=== PATIENT | male | born 1970 | race Caucasian/White ===

== ENCOUNTER 2016-12-04 22:28 | Emergency (ER) | payer OTHER ==
[~2016-12-04] VITALS: Ht 175.3 cm; Wt 100.0 kg
[~2016-12-04 22:28] MED LIST: CEPH500C3 PO; NORV10TA PO
[2016-12-04] MEDS ORDERED: LIDOCAINE HCL 1% 50 ML VIAL INFIL ONE (22:45)
--- NOTE | 2016-12-04 22:46 | PD ---
HPI Chief Complaint: finger laceration Time Seen by Provider: 22:33 Travel History International Travel<30 days: No Contact w/Intl Traveler<30days: No Traveled to known affect area: No History of Present Illness HPI 46 years old male was Jacinto acted and brought in the ED for psychiatric evaluation and laceration to left third finger. There are conflicting stories about how her finger got lacerated. Possible self-inflicted. Patient was Jacinto acted and brought to ED for evaluation. Patient denies any intentional self-inflicted wound. Patient denies any suicide ideation. Patient states that he accidentally fell and suffered a laceration to the left third finger. Patient states he is up-to-date with TD booster. Patient admits to alcohol consumption today. Patient denies any illicit drug abuse. Patient denies any suicidal ideation. PFSH Past Medical History Depression: Yes Psychiatric: Yes Past Surgical History Tonsillectomy: Yes Social History Alcohol Use: Yes Tobacco Use: Yes Substance Use: No Allergies-Medications (Allergen,Severity, Reaction): Coded Allergies: No Known Allergies (Unverified , 12/04/16) Reported Meds & Prescriptions Reported Meds & Active Scripts Active Active Prescriptions or Reported Medications Unobtainable Review of Systems General / Constitutional: No: Fever Eyes: No: Visual changes HENT: No: Headaches Cardiovascular: No: Chest Pain or Discomfort Respiratory: No: Shortness of Breath Gastrointestinal: No: Abdominal Pain Genitourinary: No: Dysuria Musculoskeletal: No: Pain Skin: No Rash Neurologic: No: Weakness Psychiatric: No: Depression Endocrine: No: Polydipsia Hematologic/Lymphatic: No: Easy Bruising Physical Exam Narrative GENERAL: Well-nourished, well-developed patient. SKIN: Focused skin assessment warm/dry. HEAD: Normocephalic. EYES: No scleral icterus. No injection or drainage. NECK: Supple, trachea midline. No JVD or lymphadenopathy. CARDIOVASCULAR: Regular rate and rhythm without murmurs, gallops, or rubs. RESPIRATORY: Breath sounds equal bilaterally. No accessory muscle use. GASTROINTESTINAL: Abdomen soft, non-tender, nondistended. MUSCULOSKELETAL: No cyanosis, or edema. BACK: Nontender without obvious deformity. No CVA tenderness. Patient has a laceration to the dorsal aspect of left third finger PIP joint. Sensorimotor function distally intact. Data Data Last Documented VS Vital Signs Date Time Temp Pulse Resp B/P Pulse Ox O2 Delivery O2 Flow Rate FiO2 12/04/16 23:06 98.3 88 15 138/94 98 Orders Complete Blood Count With Diff (12/04/16 22:41) Comprehensive Metabolic Panel (12/04/16 22:41) Psych Screen (12/04/16 22:41) Drug Screen, Random Urine (12/04/16 22:41) Alcohol (Ethanol) (12/04/16 22:41) Lidocaine 1% Inj (50 Ml) (Xylocaine 1% I (12/04/16 22:45) Labs Laboratory Tests Test 12/04/16 22:55 White Blood Count 5.7 TH/MM3 Red Blood Count 4.74 MIL/MM3 Hemoglobin 15.5 GM/DL Hematocrit 44.4 % Mean Corpuscular Volume 93.6 FL Mean Corpuscular Hemoglobin 32.7 PG Mean Corpuscular Hemoglobin 35.0 % Concent Red Cell Distribution Width 13.5 % Platelet Count 265 TH/MM3 Mean Platelet Volume 7.0 FL Neutrophils (%) (Auto) 65.0 % Lymphocytes (%) (Auto) 22.6 % Monocytes (%) (Auto) 8.5 % Eosinophils (%) (Auto) 3.2 % Basophils (%) (Auto) 0.7 % Neutrophils # (Auto) 3.7 TH/MM3 Lymphocytes # (Auto) 1.3 TH/MM3 Monocytes # (Auto) 0.5 TH/MM3 Eosinophils # (Auto) 0.2 TH/MM3 Basophils # (Auto) 0.0 TH/MM3 CBC Comment DIFF FINAL Differential Comment Sodium Level 139 MEQ/L Potassium Level 4.0 MEQ/L Chloride Level 105 MEQ/L Carbon Dioxide Level 27.0 MEQ/L Anion Gap 7 MEQ/L Blood Urea Nitrogen 5 MG/DL Creatinine 0.64 MG/DL Estimat Glomerular Filtration 135 ML/MIN Rate Random Glucose 99 MG/DL Calcium Level 8.4 MG/DL Total Bilirubin 0.3 MG/DL Aspartate Amino Transf 82 U/L (AST/SGOT) Alanine Aminotransferase 155 U/L (ALT/SGPT) Alkaline Phosphatase 76 U/L Total Protein 7.2 GM/DL Albumin 4.2 GM/DL Urine Opiates Screen NEG Urine Barbiturates Screen NEG Urine Amphetamines Screen NEG Urine Benzodiazepines Screen NEG Urine Cocaine Screen NEG Urine Cannabinoids Screen NEG Ethyl Alcohol Level 358 MG/DL MDM Medical Decision Making Medical Screen Exam Complete: Yes Emergency Medical Condition: Yes Interpretation(s) 23:35 PM. CBC within normal limit. CMP within normal limit. AST 82. ALT 155. Urine drug screen negative. Alcohol 358. Differential Diagnosis Differential diagnosis including laceration, ligament tendon joint involvement. Narrative Course 46 years old male with laceration left third finger. Possible self-limited. Patient was Casey acted. 23:36 PM. Patient is medically cleared for psychiatric evaluation and disposition. Diagnosis Primary Impression: Laceration of finger of left hand Qualified Code: S61.219A - Laceration of finger of left hand, initial encounter Additional Impression: Alcohol intoxication Qualified Code: F10.920 - Alcohol intoxication, uncomplicated Patient Instructions: General Instructions Additional Instructions: Wound care daily. Follow-up with personal physician. Return in 14 days for suture removal. Advised [facility], [place]. Med/Other Pt SpecificInfo: No Change to Meds Scripts Unable to Obtain Active Prescriptions or Reported Meds Disposition: 01 DISCHARGE HOME Condition: Stable Boubacar Barron MD December 04, 2016 22:46
[2016-12-04 23:06] VITALS: BP 138/94; PULSE 88; RESP 15; TEMP 98.3; O2SAT 98
[2016-12-04 23:07] LABS: AUTOMATED NEUTROPHIL # 3.7 TH/MM3 (1.8-7.7); BASOPHIL % 0.7 % (0.0-2.0); EOSINOPHIL # 0.2 TH/MM3 (0-0.4); EOSINOPHIL % 3.2 % (0.0-4.0); HEMATOCRIT 44.4 % (39.0-51.0); HEMO FLAGS DIFF FINAL; LYMPH % 22.6 % (9.0-44.0); LYMPHOCYTE # 1.3 TH/MM3 (1.0-4.8); MEAN CELL VOLUME 93.6 FL (80.0-100.0); MEAN CORPUSCULAR HEMOGLOBIN 32.7 PG (27.0-34.0); MONO % 8.5 % (0.0-8.0); PLATELET COUNT 265 TH/MM3 (150-450); RED BLOOD COUNT 4.74 MIL/MM3 (4.50-5.90); RED CELL DISTRIBUTION WIDTH 13.5 % (11.6-17.2); WHITE BLOOD COUNT 5.7 TH/MM3 (4.0-11.0)
[2016-12-04 23:16] LABS: AMPHETAMINE, URINE NEG (NEG); BARBITURATES, URINE NEG (NEG); COCAINE, URINE NEG (NEG)
[2016-12-04 23:21] LABS: ALT (GPT) 155 U/L (12-78); ANION GAP 7 MEQ/L (5-15); AST (GOT) 82 U/L (15-37); BLOOD UREA NITROGEN 5 MG/DL (7-18); CHLORIDE 105 MEQ/L (98-107); GLOMERULAR FILTRATION RATE 135 ML/MIN (>89); SODIUM (NA) 139 MEQ/L (136-145)
[2016-12-04 23:26] LABS: ALKALINE PHOSPHATASE 76 U/L (45-117); TOTAL BILIRUBIN ADULT 0.3 MG/DL (0.2-1.0)
--- NOTE | 2016-12-04 23:50 | PD ---
Physical Exam Time Seen by Provider: 23:49 Data Data Last Documented VS Vital Signs Date Time Temp Pulse Resp B/P Pulse Ox O2 Delivery O2 Flow Rate FiO2 12/04/16 23:06 98.3 88 15 138/94 98 Orders Complete Blood Count With Diff (12/04/16 22:41) Comprehensive Metabolic Panel (12/04/16 22:41) Psych Screen (12/04/16 22:41) Drug Screen, Random Urine (12/04/16 22:41) Alcohol (Ethanol) (12/04/16 22:41) Lidocaine 1% Inj (50 Ml) (Xylocaine 1% I (12/04/16 22:45) Labs Laboratory Tests Test 12/04/16 22:55 White Blood Count 5.7 TH/MM3 Red Blood Count 4.74 MIL/MM3 Hemoglobin 15.5 GM/DL Hematocrit 44.4 % Mean Corpuscular Volume 93.6 FL Mean Corpuscular Hemoglobin 32.7 PG Mean Corpuscular Hemoglobin 35.0 % Concent Red Cell Distribution Width 13.5 % Platelet Count 265 TH/MM3 Mean Platelet Volume 7.0 FL Neutrophils (%) (Auto) 65.0 % Lymphocytes (%) (Auto) 22.6 % Monocytes (%) (Auto) 8.5 % Eosinophils (%) (Auto) 3.2 % Basophils (%) (Auto) 0.7 % Neutrophils # (Auto) 3.7 TH/MM3 Lymphocytes # (Auto) 1.3 TH/MM3 Monocytes # (Auto) 0.5 TH/MM3 Eosinophils # (Auto) 0.2 TH/MM3 Basophils # (Auto) 0.0 TH/MM3 CBC Comment DIFF FINAL Differential Comment Sodium Level 139 MEQ/L Potassium Level 4.0 MEQ/L Chloride Level 105 MEQ/L Carbon Dioxide Level 27.0 MEQ/L Anion Gap 7 MEQ/L Blood Urea Nitrogen 5 MG/DL Creatinine 0.64 MG/DL Estimat Glomerular Filtration 135 ML/MIN Rate Random Glucose 99 MG/DL Calcium Level 8.4 MG/DL Total Bilirubin 0.3 MG/DL Aspartate Amino Transf 82 U/L (AST/SGOT) Alanine Aminotransferase 155 U/L (ALT/SGPT) Alkaline Phosphatase 76 U/L Total Protein 7.2 GM/DL Albumin 4.2 GM/DL Urine Opiates Screen NEG Urine Barbiturates Screen NEG Urine Amphetamines Screen NEG Urine Benzodiazepines Screen NEG Urine Cocaine Screen NEG Urine Cannabinoids Screen NEG Ethyl Alcohol Level 358 MG/DL [facility] Medical Record Reviewed: Yes Supervised Visit with ELLY: No Procedures Procedure Narrative LACERATION LOCATION: Left third digit LENGTH: 1 cm NUMBER OF STITCHES/CAITLIN: 1 horizontal mattress suture REPAIR: The area of the laceration was prepped with Betadine and sterilely draped. The laceration was infiltrated with 1% lidocaine without epinephrine the wound was copiously irrigated and explored without evidence of foreign body , tendon injury or neurovascular injury. The wound was closed using [4-0 Prolene]. This was a single layer repair. A sterile dressing was applied. The patient was advised to keep the dressing clean and dry. Patient tolerated the procedure well. Diagnosis Primary Impression: Laceration of finger of left hand Patient Instructions: General Instructions Additional Instruction: Wound care daily. Follow-up with personal physician. Return in 14 days for suture removal. Scripts Unable to Obtain Active Prescriptions or Reported Meds Disposition: 01 DISCHARGE HOME Condition: Stable Julianna Malagon December 04, 2016 23:50
[2016-12-05] MEDS ORDERED: IBUPROFEN 800 MG TAB PO ONE (03:15)
[2016-12-05 08:01] VITALS: BP 158/92; PULSE 105; RESP 20; O2SAT 95
--- NOTE | 2016-12-05 11:02 | PD ---
History of Present Illness Chief Complaint: Psychiatric Symptoms Time Seen by Provider: 10:45 Travel History International Travel<30 Days: No Contact w/Intl Traveler<30days: No Known affected area: No Legal Status Legal Status: Casey Act Casey Act Signed By: Chong Franklin History of Present Illness: A 46-year-old male currently treated for chronic pain complaints by the [facility]. Apparently the patient became intoxicated last night and got into an argument with his significant other. He inadvertently cut himself on the finger according to his report. (According to the report of the significant other, the patient has a habit of doing this.) Patient is no longer intoxicated and denies suicidal and homicidal ideation, plan or intent. He denies any psychotic symptoms. His cognition is intact and felt to be baseline. He is verbally rosa for safety. He is afraid, however, that he may go into alcohol withdrawal and would like something to prevent him from having seizures. 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 He would like to go home with a prescription for Librium or Ativan and agrees to follow up with the [facility] Past Medical History Depression: Yes Psychiatric: Yes Tetanus Vaccination: < 5 Years ?: Unknown Past Surgical History Tonsillectomy: Yes Psychiatric History Psychiatric History Hx Psychiatric Treatment: [facility] WITH ZOLOFT AND XANAX FOR PAST 4 YRS. WENT TO AN URGENT CARE CENTER RECENTLY FOR C/O INABILITY TO SLEEP. RECEIVED AMBIEN THAT HE USED TO OVERDOSE ON. This physician feels the patient continues to abuse alcohol and very likely medications, but for the sake of caution and safety, he will be given small supply of Ativan to prevent withdrawal. History of Inpatient Treatment: No Guns or firearms in home: No Social History Hx Alcohol Use: Yes Hx Tobacco Use: Yes Hx Substance Use: No Substance Use Type: Alcohol Other Substances Used: DRUG OF CHOICE IS ETOH - BEER Hx of Substance Use Treatment: No Allergies-Medications (Allergen,Severity, Reaction): Coded Allergies: No Known Allergies (Unverified , 5/18/17) Reported Meds & Prescriptions Reported Meds & Active Scripts Active Active Prescriptions or Reported Medications Unobtainable Review of Systems Except as stated in HPI: all other systems reviewed are Neg Exam Alert: Yes [place]: Person, Place, Date, Situation Mood: Calm Affect: Appropriate Speech: Clear, Logical Eye Contact: Normal Memory Intact: Immediate, Recent, Remote Insight/Judgement Adequate, except for substance abuse . MDM Medical Decision Making Medical Record Reviewed: Yes Assessment/Plan Patient's Casey act being lifted because he is not felt to be a danger to self or others, or unable to care for himself, at this time. Apparently [facility] and receives benefits from his service. He wants to go home and is willing to follow up at the [facility]. This physician feels he does not meet criteria for inpatient psychiatric hospitalization at this time. Orders Complete Blood Count With Diff (12/04/16 22:41) Comprehensive Metabolic Panel (12/04/16 22:41) Psych Screen (12/04/16 22:41) Drug Screen, Random Urine (12/04/16 22:41) Alcohol (Ethanol) (12/04/16 22:41) Lidocaine 1% Inj (50 Ml) (Xylocaine 1% I (12/04/16 22:45) Ibuprofen (Motrin) (12/05/16 03:15) Diet Regular Basic (12/05/16 Breakfast) Results Vital Signs Date Time Temp Pulse Resp B/P Pulse Ox O2 Delivery O2 Flow Rate FiO2 12/05/16 08:01 105 20 158/92 95 Room Air 12/04/16 23:06 98.3 88 15 138/94 98 Laboratory Tests Test 12/04/16 22:55 White Blood Count 5.7 Red Blood Count 4.74 Hemoglobin 15.5 Hematocrit 44.4 Mean Corpuscular Volume 93.6 Mean Corpuscular Hemoglobin 32.7 Mean Corpuscular Hemoglobin 35.0 Concent Red Cell Distribution Width 13.5 Platelet Count 265 Mean Platelet Volume 7.0 Neutrophils (%) (Auto) 65.0 Lymphocytes (%) (Auto) 22.6 Monocytes (%) (Auto) 8.5 Eosinophils (%) (Auto) 3.2 Basophils (%) (Auto) 0.7 Neutrophils # (Auto) 3.7 Lymphocytes # (Auto) 1.3 Monocytes # (Auto) 0.5 Eosinophils # (Auto) 0.2 Basophils # (Auto) 0.0 CBC Comment DIFF FINAL Differential Comment Sodium Level 139 Potassium Level 4.0 Chloride Level 105 Carbon Dioxide Level 27.0 Anion Gap 7 Blood Urea Nitrogen 5 Creatinine 0.64 Estimat Glomerular Filtration 135 Rate Random Glucose 99 Calcium Level 8.4 Total Bilirubin 0.3 Aspartate Amino Transf 82 (AST/SGOT) Alanine Aminotransferase 155 (ALT/SGPT) Alkaline Phosphatase 76 Total Protein 7.2 Albumin 4.2 Urine Opiates Screen NEG Urine Barbiturates Screen NEG Urine Amphetamines Screen NEG Urine Benzodiazepines Screen NEG Urine Cocaine Screen NEG Urine Cannabinoids Screen NEG Ethyl Alcohol Level 358 Diagnosis Primary Impression: Alcohol abuse Patient Instructions: General Instructions Additional Instructions: Wound care daily. Follow-up with personal physician. Return in 14 days for suture removal. Advised [facility]. Prescriptions Unable to Obtain Active Prescriptions or Reported Meds Disposition: 01 DISCHARGE HOME Condition: Stable Augie Arauz MD December 05, 2016 11:02
[2016-12-05] MEDS ORDERED: LORA-474 PO (11:04)
[2016-12-05 11:15] VITALS: BP 160/90; TEMP 98.4
== END 2016-12-05 11:53 | disposition home or self-care (01) ==
LOC: NEPD 22:28
DX: S61.213A Laceration without foreign body of left middle finger without damage to nail, initial encounter (principal); F10.920 Alcohol use, unspecified with intoxication, uncomplicated; F10.10 Alcohol abuse, uncomplicated; Z72.0 Tobacco use; Z86.59 Personal history of other mental and behavioral disorders; X58.XXXA Exposure to other specified factors, initial encounter
CPT/HCPCS: 12001; 80053; 80307; 85025

== ENCOUNTER 2017-07-19 20:35 | Emergency (ER) | payer OTHER ==
[~2017-07-19] VITALS: Ht 180.3 cm; Wt 80.0 kg
[~2017-07-19 20:35] MED LIST changes: -CEPH500C3 PO; +LORA-474 PO; -NORV10TA PO
[2017-07-19 20:37] VITALS: BP 176/103; PULSE 113; RESP 16; TEMP 98.1; O2SAT 98
[2017-07-19] MEDS ORDERED: LIDOCAINE 1%/EPINEPHrine 1:100,000 SOLN 20 ML VIAL INFIL ONE (20:45)
[2017-07-19 20:47] VITALS: BP 151/93; PULSE 108; RESP 16; TEMP 97.9; O2SAT 97
[2017-07-19] MEDS ORDERED: AMPICILLIN-SULBACTAM INJ 1,500 MG in SODIUM CHLORIDE 0.9% INJ 100 ML IV ONE (21:00)
[2017-07-19] MEDS ORDERED: ONDANSETRON HCL 4 MG/2 ML VIAL IV PUSH ONE (21:00)
[2017-07-19] MEDS ORDERED: RABIES VACCINE HUMAN DIPL CELL 2.5 UNITS/ML SYRINGE IM ONE (21:00)
[2017-07-19] MEDS ORDERED: RABIES IMMUNE GLOBULIN INJ 1,500 UNITS/10 ML VIAL IM ONE (21:00)
[2017-07-19] MEDS ORDERED: MORPHINE SULFATE 2 MG/ML INJ IV PUSH ONE (21:00)
[2017-07-19 21:20] LABS: BASOPHIL # 0.1 TH/MM3 (0-0.2); BASOPHIL % 0.6 % (0.0-2.0); EOSINOPHIL # 0.4 TH/MM3 (0-0.4); EOSINOPHIL % 4.1 % (0.0-4.0); HEMATOCRIT 40.5 % (39.0-51.0); HEMOGLOBIN 14.4 GM/DL (13.0-17.0); LYMPH % 21.8 % (9.0-44.0); LYMPHOCYTE # 2.2 TH/MM3 (1.0-4.8); MEAN CELL VOLUME 94.5 FL (80.0-100.0); MEAN CORPUSCULAR HEMOGLOBIN 33.7 PG (27.0-34.0); MEAN CORPUSCULAR HGB CONC 35.6 % (32.0-36.0); MEAN PLATELET VOLUME 7.7 FL (7.0-11.0); MONO % 12.4 % (0.0-8.0); MONOCYTE # 1.2 TH/MM3 (0-0.9); NEUT % 61.1 % (16.0-70.0); PLATELET COUNT 282 TH/MM3 (150-450); RED BLOOD COUNT 4.28 MIL/MM3 (4.50-5.90); RED CELL DISTRIBUTION WIDTH 14.1 % (11.6-17.2); WHITE BLOOD COUNT 9.9 TH/MM3 (4.0-11.0)
--- NOTE | 2017-07-19 21:22 | PD ---
HPI Chief Complaint: Bite or Sting Time Seen by Provider: 21:11 Travel History International Travel<30 days: No Contact w/Intl Traveler<30days: No Traveled to known affect area: No History of Present Illness HPI 47-year-old male that presents to the ED for evaluation of the bite. Patient was bit by a "stray dog " on his left side as well as on his right arm. Per patient he was walking when the dog attacked him. He denies any other injury. He denies hitting his head or losing consciousness. Per patient the leg wound started bleeding profusely and he applied tourniquette. 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 Per patient it continued to bleed plate symptoms started after the tourniquet was applied. He has not bled since been here. He states that he is 10 out of 10 pain on the left leg. He states that his last tetanus was 2 years ago. He denies any chest pain. No shortness of breath. He has no allergies to medication. He does not know the calibration engineer of the dog and he did not contact animal control. Dog was not found. He denies any other medical issues at this time. Injury occurred over an hour ago. PFSH Past Medical History Depression: Yes Psychiatric: Yes Tetanus Vaccination: < 5 Years Past Surgical History Tonsillectomy: Yes Social History Alcohol Use: Yes (occasional) Tobacco Use: Yes Substance Use: No Allergies-Medications (Allergen,Severity, Reaction): Coded Allergies: No Known Allergies (Unverified , 12/04/16) Reported Meds & Prescriptions Reported Meds & Active Scripts Active Hydrocodone-Acetamin 5-325 mg (Hydrocodone/Acetaminophen) 5 Mg-325 Mg Tablet 1 Tab PO Q6HR PRN Augmentin (Amoxicillin-Clavulanate) 875-125 Mg Tab 1 Tab PO BID [address] (Diclofenac Sodium) 75 Mg Tabdr 75 Mg PO BID PRN Review of Systems Except as stated in HPI: all other systems reviewed are Neg Physical Exam Narrative GENERAL: SKIN: Warm and dry. HEAD: Atraumatic. Normocephalic. EYES: Pupils equal and round. No scleral icterus. No injection or drainage. ENT: No nasal bleeding or discharge. Mucous membranes pink and moist. Tongue is midline. No uvula deviation. NECK: Trachea midline. No JVD. CARDIOVASCULAR: Regular rate and rhythm. No murmurs, S3, S4. RESPIRATORY: No accessory muscle use. Clear to auscultation. Breath sounds equal bilaterally. GASTROINTESTINAL: Abdomen soft, non-tender, nondistended. Hepatic and splenic margins not palpable. MUSCULOSKELETAL: Extremities without clubbing, cyanosis, or edema. No obvious deformities. Full range of motion of the upper and lower extremities bilaterally. Patient does have some bruising and swelling noted on the left medial thigh as well as on the exterior lateral side. Patient does have a puncture wound of the bite annie that is about half centimeter patient does have a hematoma in the area which is about 3-5 cm in diameter. Slightly tender to touch. Patient does have some more superficial dog bite like beyer on the medial aspect of the left medial tight with some bruising noted. Minimal to no bleeding noted on my examination. tourniquette was removed and still no bleeding. Patient has 2+ pulses on the posterior tibialis, dorsalis pedis, femoral artery as well as the popliteal artery of the left leg. Patient does have superficial dog bite beyer to the right forearm. Some bruising noted but minimal. Also appears to have some scratch worse in the area. Able to move all fingers. NEUROLOGICAL: Awake and alert. No obvious cranial nerve deficits. Motor grossly within normal limits. Five out of 5 muscle strength in the arms and legs. Normal speech. PSYCHIATRIC: Appropriate mood and affect; insight and judgment normal. Data Data Last Documented VS Vital Signs Date Time Temp Pulse Resp B/P (MAP) Pulse Ox O2 Delivery O2 Flow Rate FiO2 07/19/17 20:47 97.9 108 16 151/93 (112) 97 Room Air Orders Orders Lidocai-Epi 1%-1:100,000 Inj (Xylocaine- (07/19/17 20:45) Basic Metabolic Panel (Bmp) (07/19/17 20:47) Complete Blood Count With Diff (07/19/17 20:47) Wound Care (07/19/17 20:47) Prothrombin Time / Inr (Pt) (07/19/17 20:47) Act Partial Throm Time (Ptt) (07/19/17 20:47) Iv Access Insert/Monitor (07/19/17 20:47) Rabies Vaccine Human Cell Inj (Imovax In (07/19/17 21:00) Rabies Immune Globulin Inj (Hyperrab S/D (07/19/17 21:00) Morphine Inj (Morphine Inj) (07/19/17 21:00) Ampicillin-Sulbactam Inj (Unasyn Inj) (07/19/17 21:00) Ondansetron Inj (Zofran Inj) (07/19/17 21:00) Femur (Ap & Lat/2vws) (07/19/17 ) Forearm (2vws) (07/19/17 ) Ed Discharge Order (07/19/17 22:19) Labs Laboratory Tests Test 07/19/17 21:00 White Blood Count 9.9 TH/MM3 Red Blood Count 4.28 MIL/MM3 Hemoglobin 14.4 GM/DL Hematocrit 40.5 % Mean Corpuscular Volume 94.5 FL Mean Corpuscular Hemoglobin 33.7 PG Mean Corpuscular Hemoglobin Concent 35.6 % Red Cell Distribution Width 14.1 % Platelet Count 282 TH/MM3 Mean Platelet Volume 7.7 FL Neutrophils (%) (Auto) 61.1 % Lymphocytes (%) (Auto) 21.8 % Monocytes (%) (Auto) 12.4 % Eosinophils (%) (Auto) 4.1 % Basophils (%) (Auto) 0.6 % Neutrophils # (Auto) 6.0 TH/MM3 Lymphocytes # (Auto) 2.2 TH/MM3 Monocytes # (Auto) 1.2 TH/MM3 Eosinophils # (Auto) 0.4 TH/MM3 Basophils # (Auto) 0.1 TH/MM3 CBC Comment DIFF FINAL Differential Comment Prothrombin Time 9.2 SEC Prothromb Time International Ratio 0.9 RATIO Activated Partial Thromboplast Time 27.1 SEC Blood Urea Nitrogen 11 MG/DL Creatinine 0.76 MG/DL Random Glucose 84 MG/DL Calcium Level 8.1 MG/DL Sodium Level 134 MEQ/L Potassium Level 4.2 MEQ/L Chloride Level 98 MEQ/L Carbon Dioxide Level 22.0 MEQ/L Anion Gap 14 MEQ/L Estimat Glomerular Filtration Rate 110 ML/MIN MDM Medical Decision Making Medical Screen Exam Complete: Yes Emergency Medical Condition: Yes Medical Record Reviewed: Yes Interpretation(s) CBC & BMP Diagram 07/19/17 21:00 Calcium Level 8.1 L xrays negative for acute disease Differential Diagnosis Dogbite versus laceration versus abrasion versus infection versus bleeding versus hematoma Narrative Course 47-year-old male that presents to the ED for evaluation of dog bite. Patient was properly examined and was found to have signs and symptoms consistent appears to be done by. Initially per patient he had profuse bleeding. He has not had any bleeding since been here. He does have a hematoma to the area where he had the bleeding from. He does have old blood in the area. My attending Dr. Mao evaluated the patient with me and agrees with plan. This time likely patient suffered the bite that possibly cut one of the superficial veins inconstantly bleeding. This time he is no bleeding. He has good pulses. She agrees that CTA is not recommended at this time as patient likely did not suffer an arterial injury. Also bleeding has been controlled. Patient however did suffer a dog bite from a stray. We do recommend rabies prophylactics, until all aches and pain medication. Patient agrees with this plan. Labs were ordered as patient did suffer some bleeding. Patient had x-rays to make sure there is no bony injuries although this is less likely. Labs and imaging were essentially reassuring. Patient was given first dose of rabies vaccine here and immunoglobin given by me on the wound as well as by ED nurse. All questions were asked to the best of my ability. Patient was told that he will need to get his rabies vaccines by the health department or by us in 3 days on July 22 and then a week from today and then 2 weeks from today for day 0, 3, 7 and 14. Patient agrees and understands need for this. Patient already had a tetanus vaccine given 2 years ago. Patient will be sent home with prescriptions for Lortab, diclofenac sodium, Augmentin. Patient agrees with plan. Wound care was endorsed. See ED worsening symptoms. Follow with PCP. Diagnosis Primary Impression: Dog bite Qualified Codes: W54.0XXA - Bitten by dog, initial encounter Additional Impression: Need for rabies vaccination Patient Instructions: General Instructions, Narcotic given in the ED Additional Instructions: Take medications as prescribed. Follow-up with PCP. See ED for any worsening symptoms. Do not drink or drive while taking pain medication. Apply ice or heat as needed for pain You need to get your next dose of rabies vaccine on day 3 (july 22), day 7 ( july 26), day 14 (august 02). You can get this done at the health department or ED if health department cannot. Med/Other Pt SpecificInfo: Prescription(s) given Scripts Hydrocodone/Acetaminophen (Hydrocodone-Acetamin 5-325 mg) 5 Mg-325 Mg Tablet 1 TAB PO Q6HR Y for PAIN SCALE 1 TO 10, #14 Prov: Melvina Mao MD 07/19/17 Amoxicillin-Clavulanate (Augmentin) 875-125 Mg Tab 1 TAB PO BID for Infection for 10 Days, #20 TAB 0 Refills Prov: Melvina Mao MD 07/19/[address] (Diclofenac Sodium DR) 75 Mg Tabdr 75 MG PO BID Y for PAIN SCALE 1 TO 10, #30 TAB 0 Refills Prov: Melvina Mao MD 07/19/17 Disposition: 01 DISCHARGE HOME Condition: Carlos Oates Jul 19, 2017 21:22
[2017-07-19 21:32] LABS: INTERNATIONAL NORMALIZED RATIO 0.9 RATIO; PROTHROMBIN TIME - PATIENT 9.2 SEC (9.8-11.6)
[2017-07-19 21:35] LABS: CALCIUM 8.1 MG/DL (8.5-10.1); CREATININE 0.76 MG/DL (0.60-1.30)
[2017-07-19] MEDS ORDERED: HYDR-3516 PO (22:12)
[2017-07-19] MEDS ORDERED: DICL75TA PO (22:12)
[2017-07-19] MEDS ORDERED: AUGM875T3 PO (22:12)
--- NOTE | 2017-07-19 22:17 | RADRPT ---
EXAM DATE/TIME: 07/19/2017 21:45 [facility] COMPARISON: No previous studies available for comparison. INDICATIONS : Left mid shaft hematoma and puncture wounds from trauma sustained from a dog bite. MEDICAL HISTORY : None. SURGICAL HISTORY : None. ENCOUNTER: Initial ACUITY: 1 day PAIN SCORE: 9/10 LOCATION: Left femur FINDINGS: No definite fractures, or dislocations are identified. No definite lytic or sclerotic lesion is seen . The joint space is well maintained. CONCLUSION: Unremarkable study. Jammie Mccrary MD on July 19, 2017 at 22:15 Board Certified Radiologist. This report was verified electronically.
--- NOTE | 2017-07-19 22:18 | RADRPT ---
EXAM DATE/TIME: 07/19/2017 21:49 [facility] COMPARISON: No previous studies available for comparison. INDICATIONS : Proximal right forearm punctures from trauma sustained by a dog bite. MEDICAL HISTORY : None. SURGICAL HISTORY : None. ENCOUNTER: Initial ACUITY: 1 day PAIN SCORE: 9/10 LOCATION: Right forearm FINDINGS: No definite fractures, or dislocations are identified. No definite lytic or sclerotic lesion is seen . There is old healed fracture of fifth metacarpal bone. CONCLUSION: Unremarkable study. Jammie Mccrary MD on July 19, 2017 at 22:15 Board Certified Radiologist. This report was verified electronically.
== END 2017-07-19 22:37 | disposition home or self-care (01) ==
LOC: NEPC 20:35
DX: S41.151A Open bite of right upper arm, initial encounter (principal); F32.9 Major depressive disorder, single episode, unspecified; W54.0XXA Bitten by dog, initial encounter; Z72.0 Tobacco use; Z29.14 Encounter for prophylactic rabies immune globulin
CPT/HCPCS: 73090; 73552; 80048; 85025; 85610; 85730; 90375; 90675; 96372; 96374; 96375; 99284; J0295; J2270; J2405

== ENCOUNTER 2017-08-28 09:52 | Inpatient (IN) | payer OTHER ==
[~2017-08-28] VITALS: Ht 180.3 cm; Wt 85.2 kg
[~2017-08-28 09:52] MED LIST changes: +AUGM875T3 PO; +DICL75TA PO; +HYDR-3516 PO; -LORA-474 PO
[2017-08-28 09:55] VITALS: BP 197/114; PULSE 101; RESP 16; TEMP 98.8; O2SAT 100
[2017-08-28] MEDS ORDERED: MEDI220T PO (10:24)
--- NOTE | 2017-08-28 10:48 | PD ---
HPI Chief Complaint: Psychiatric Symptoms Time Seen by Provider: 10:26 Travel History International Travel<30 days: No Contact w/Intl Traveler<30days: No Traveled to known affect area: No History of Present Illness HPI This is a 47-year-old male who has a history of depression and PTSD who presents to the emergency department with increasing depression, hopelessness and thoughts of suicide. The patient reports that he lost 2 family members in the past 6 months, his father and his 3 months ago. He has been having thoughts of killing himself. His symptoms have been constant, severe and worrisome enough that he thinks he needs to be hospitalized. He drinks alcohol socially and denies any alcohol use today. PFSH Past Medical History Depression: Yes Cardiovascular Problems: Yes Hypertension: Yes Medical other: Yes (CHRONIC PAIN) Psychiatric: Yes Influenza Vaccination: Yes Past Surgical History Tonsillectomy: Yes Social History Alcohol Use: Yes (occasional) Tobacco Use: Yes Substance Use: No Allergies-Medications (Allergen,Severity, Reaction): Coded Allergies: No Known Allergies (Unverified Adverse Reaction, Unknown, 08/28/17) Reported Meds & Prescriptions Reported Meds & Active Scripts Active Hydrocodone-Acetamin 5-325 mg (Hydrocodone/Acetaminophen) 5 Mg-325 Mg Tablet 1 Tab PO Q6HR PRN Augmentin (Amoxicillin-Clavulanate) 875-125 Mg Tab 1 Tab PO BID [address] (Diclofenac Sodium) 75 Mg Tabdr 75 Mg PO BID PRN Reported Naproxen Sodium 220 Mg Tab 220 Mg PO BID PRN Review of Systems Except as stated in HPI: all other systems reviewed are Neg Physical Exam Narrative GENERAL:Well appearing, no acute distress SKIN: Focused skin assessment warm and dry. HEAD: Atraumatic. Normocephalic. EYES: Pupils equal and round. No injection or drainage. ENT: Moist mucous membranes NECK: Trachea midline. CARDIOVASCULAR: Regular rate and rhythm. No murmur appreciated. RESPIRATORY: Clear to auscultation. Breath sounds equal bilaterally. GASTROINTESTINAL: Abdomen soft, non-tender, nondistended. MUSCULOSKELETAL: No obvious deformities. NEUROLOGICAL: Awake and alert. No obvious cranial nerve deficits. Moving all extremities. PSYCHIATRIC: Depressed mood, expressing suicidal ideation Data Data Last Documented VS Vital Signs Date Time Temp Pulse Resp B/P (MAP) Pulse Ox O2 Delivery O2 Flow Rate FiO2 08/28/17 15:56 98.7 103 16 153/93 (113) 96 Room Air Orders Orders Complete Blood Count With Diff (08/28/17 10:30) Comprehensive Metabolic Panel (08/28/17 10:30) Thyroid Stimulating Hormone (08/28/17 10:30) Psych Screen (08/28/17 10:30) Drug Screen, Random Urine (08/28/17 10:30) Alcohol (Ethanol) (08/28/17 10:30) Diet Regular Basic (08/28/17 Dinner) Labs Laboratory Tests Test 08/28/17 10:50 08/28/17 11:50 White Blood Count 8.4 TH/MM3 Red Blood Count 4.72 MIL/MM3 Hemoglobin 15.2 GM/DL Hematocrit 43.3 % Mean Corpuscular Volume 91.9 FL Mean Corpuscular Hemoglobin 32.3 PG Mean Corpuscular Hemoglobin Concent 35.1 % Red Cell Distribution Width 15.0 % Platelet Count 331 TH/MM3 Mean Platelet Volume 6.8 FL Neutrophils (%) (Auto) 78.6 % Lymphocytes (%) (Auto) 8.9 % Monocytes (%) (Auto) 11.4 % Eosinophils (%) (Auto) 0.5 % Basophils (%) (Auto) 0.6 % Neutrophils # (Auto) 6.6 TH/MM3 Lymphocytes # (Auto) 0.8 TH/MM3 Monocytes # (Auto) 1.0 TH/MM3 Eosinophils # (Auto) 0.0 TH/MM3 Basophils # (Auto) 0.1 TH/MM3 CBC Comment DIFF FINAL Differential Comment Blood Urea Nitrogen 11 MG/DL Creatinine 0.74 MG/DL Random Glucose 96 MG/DL Total Protein 8.0 GM/DL Albumin 4.6 GM/DL Calcium Level 9.7 MG/DL Alkaline Phosphatase 72 U/L Aspartate Amino Transf (AST/SGOT) 26 U/L Alanine Aminotransferase (ALT/SGPT) 54 U/L Total Bilirubin 0.4 MG/DL Sodium Level 132 MEQ/L Potassium Level 4.1 MEQ/L Chloride Level 97 MEQ/L Carbon Dioxide Level 23.5 MEQ/L Anion Gap 12 MEQ/L Estimat Glomerular Filtration Rate 113 ML/MIN Thyroid Stimulating Hormone 3rd Gen 2.260 uIU/ML Ethyl Alcohol Level 137 MG/DL Urine Opiates Screen NEG Urine Barbiturates Screen NEG Urine Amphetamines Screen NEG Urine Benzodiazepines Screen NEG Urine Cocaine Screen NEG Urine Cannabinoids Screen NEG MDM Medical Decision Making Medical Screen Exam Complete: Yes Emergency Medical Condition: Yes Interpretation(s) Afebrile, mild tachycardia, hypertensive No leukocytosis Electrolytes are reassuring TSH is normal Alcohol is 137 Urine drug screen is negative Differential Diagnosis Depression, substance-induced mood disorder, posttraumatic stress disorder Narrative Course This is a 47-year-old male who presents to the emergency department with increasing depression ever since his father and his both within the past 6 months. He does appear depressed on exam. He denied alcohol use to me but his alcohol level is 137 so there may be a component of substance- induced mood disorder. I still think patient requires psychiatric evaluation. He has been admitted psychiatrically in the past. He has no other medical complaints and is medically cleared. Gavi Velazco MD Aug 28, 2017 10:48
[2017-08-28 11:04] LABS: AUTOMATED NEUTROPHIL # 6.6 TH/MM3 (1.8-7.7); BASOPHIL # 0.1 TH/MM3 (0-0.2); BASOPHIL % 0.6 % (0.0-2.0); EOSINOPHIL % 0.5 % (0.0-4.0); HEMATOCRIT 43.3 % (39.0-51.0); HEMOGLOBIN 15.2 GM/DL (13.0-17.0); LYMPH % 8.9 % (9.0-44.0); LYMPHOCYTE # 0.8 TH/MM3 (1.0-4.8); MEAN CELL VOLUME 91.9 FL (80.0-100.0); MEAN CORPUSCULAR HEMOGLOBIN 32.3 PG (27.0-34.0); MEAN CORPUSCULAR HGB CONC 35.1 % (32.0-36.0); MEAN PLATELET VOLUME 6.8 FL (7.0-11.0); MONO % 11.4 % (0.0-8.0); NEUT % 78.6 % (16.0-70.0); PLATELET COUNT 331 TH/MM3 (150-450); RED BLOOD COUNT 4.72 MIL/MM3 (4.50-5.90); WHITE BLOOD COUNT 8.4 TH/MM3 (4.0-11.0)
[2017-08-28 11:20] LABS: ALBUMIN 4.6 GM/DL (3.4-5.0); AST (GOT) 26 U/L (15-37); BICARBONATE 23.5 MEQ/L (21.0-32.0); BLOOD UREA NITROGEN 11 MG/DL (7-18); CALCIUM 9.7 MG/DL (8.5-10.1); CHLORIDE 97 MEQ/L (98-107); CREATININE 0.74 MG/DL (0.60-1.30); GLOMERULAR FILTRATION RATE 113 ML/MIN (>89); GLUCOSE,RANDOM 96 MG/DL (74-106); SODIUM (NA) 132 MEQ/L (136-145)
[2017-08-28 11:22] LABS: ALT (GPT) 54 U/L (12-78)
[2017-08-28 11:31] LABS: ALKALINE PHOSPHATASE 72 U/L (45-117); TOTAL BILIRUBIN ADULT 0.4 MG/DL (0.2-1.0)
[2017-08-28 15:56] VITALS: BP 153/93; PULSE 103; RESP 16; TEMP 98.7; O2SAT 96
[2017-08-28 18:15] VITALS: BP 151/91; PULSE 110; RESP 20; O2SAT 97
[2017-08-28] MEDS ORDERED: MAGNESIUM HYDROXIDE SUSP 30 ML CUP PO PRN (19:15)
[2017-08-28] MEDS ORDERED: traZODone HCL 50 MG TAB PO PRN (19:15)
[2017-08-28] MEDS ORDERED: ALUMINUM/MAGNESIUM/SIMETH 30 ML CUP PO PRN (19:15)
[2017-08-28] MEDS ORDERED: LORazepam 2 MG/ML VIAL IV PUSH PRN ×4 (19:30)
[2017-08-28] MEDS ORDERED: FLUMAZENIL 0.5 MG/5 ML VIAL IV PUSH PRN (19:30)
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
[2017-08-28] MEDS: LORazepam 2 MG TAB PO PRN (20:37)
[2017-08-28 21:40] VITALS: BP 146/83; PULSE 93; RESP 18; TEMP 98.3; O2SAT 98
[2017-08-29 05:36] VITALS: BP 158/88; PULSE 89; RESP 18; TEMP 98.2; O2SAT 99
--- NOTE | 2017-08-29 10:00 | EKG ---
Date Performed: 08/29/2017 Time Performed: 09:17:45 PTAGE: 47 years EKG: SINUS TACHYCARDIA POSSIBLE RIGHT ATRIAL ENLARGEMENT ABNORMAL RHYTHM ECG NO PREVIOUS TRACING DOCTOR: Albert Dutta Interpretating Date/Time 08/29/2017 09:58:35
[2017-08-29] MEDS: LORazepam 2 MG TAB PO PRN (10:18)
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
[2017-08-29 10:36] LABS: BICARBONATE 28.7 MEQ/L (21.0-32.0); BLOOD UREA NITROGEN 16 MG/DL (7-18); CALCIUM 9.5 MG/DL (8.5-10.1); CHLORIDE 100 MEQ/L (98-107); CHOLESTEROL 287 MG/DL (120-200); CREATININE 0.97 MG/DL (0.60-1.30); GLOMERULAR FILTRATION RATE 83 ML/MIN (>89); GLUCOSE,RANDOM 157 MG/DL (74-106); SODIUM (NA) 137 MEQ/L (136-145)
[2017-08-29 11:01] LABS: CHOLESTEROL/ HDL RATIO 2.53 RATIO; LDL CHOLESTEROL 152 MG/DL (0-99); TRIGLYCERIDES 112 MG/DL (42-150)
[2017-08-29] MEDS: DULoxetine HCl DR 20 MG CAP PO SCH ×2 (11:08→20:54)
[2017-08-29 11:29] LABS: HEMOGLOBIN A1C 5.3 % (4.3-6.0)
[2017-08-29] MEDS: LORazepam 1 MG TAB PO PRN (13:07)
[2017-08-29 18:03] VITALS: BP 155/78; PULSE 82; RESP 18; TEMP 98.1; O2SAT 99
[2017-08-29] MEDS: ZOLPIDEM TARTRATE 5 MG TAB PO SCH (20:54)
[2017-08-30 05:32] VITALS: BP 141/85; PULSE 83; RESP 16; TEMP 98.2; O2SAT 98
[2017-08-30] MEDS: DULoxetine HCl DR 20 MG CAP PO SCH ×2 (09:07→20:51)
[2017-08-30] MEDS: LORazepam 1 MG TAB PO PRN ×2 (09:44→17:37)
--- NOTE | 2017-08-30 13:06 | HHI.PYPN ---
Subjective Remarks Pt seen and discussed with staff. He has been placed in camera room due to on going suicidal ideations. He contracts for safety on unit. He has been very flat and withdrawn on unit. No behavioral problems on unit. He didn't go out for fresh air but did come to dayroom briefly. He is compliant with medications. Mental Status Examination Appearance: Appropriate Consciousness: Alert Orientation: x4 Motor Activity: Normal gait Speech: Unremarkable Language: Adequate Fund of Knowledge: Adequate Attention and Concentration: Adequate Memory: Unremarkable Mood: Sad, Anxious Affect: Sad Thought Process & Associations: Intact, Logical, Goal directed Thought Content: Appropriate Hallucination Type: None Delusion Type: None Suicidal Ideation: Yes Suicidal Plan: No Suicidal Intention: No Homicidal Ideation: No Homicidal Plan: No Homicidal Intention: No Insight: Fair Judgment: Impulsive Results Vitals/IOs Vital Signs Date Time Temp Pulse Resp B/P (MAP) Pulse Ox O2 Delivery O2 Flow Rate FiO2 08/30/17 05:32 98.2 83 16 141/85 (103) 98 08/28/17 18:15 Room Air Intake and Output 08/30/17 08/30/17 08/31/17 08:00 16:00 00:00 Intake Total 240 ml 240 ml Balance 240 ml 240 ml Assessment & Plan Problem List: (1) Major depressive disorder, recurrent severe without psychotic features ICD Codes: F33.2 - Major depressive disorder, recurrent severe without psychotic features Assessment & Plan Continue current tx plan., Estimated LOS: days Justification for Cont. Inpt. impairments in safety Malissa Alba MD Aug 30, 2017 13:05
[2017-08-30 18:35] VITALS: BP 158/83; PULSE 79; RESP 18; TEMP 97.9; O2SAT 96
[2017-08-30] MEDS: ZOLPIDEM TARTRATE 5 MG TAB PO SCH (20:51)
[2017-08-31] MEDS: LORazepam 1 MG TAB PO PRN ×2 (02:23→13:01)
[2017-08-31] MEDS: ACETAMINOPHEN 325 MG TAB PO PRN (02:28)
[2017-08-31 06:18] VITALS: BP 150/91; PULSE 84; RESP 20; TEMP 98.2; O2SAT 98
[2017-08-31] MEDS: DULoxetine HCl DR 20 MG CAP PO SCH ×2 (08:58→20:45)
--- NOTE | 2017-08-31 10:31 | HHI.PYPN ---
Subjective Chief Complaint: Depression, SI Remarks Patient seen and examined with nurse. Chart reviewed. CIWA Max in last 24 hours = 5. Case discussed with nursing staff. On my examination today, the patient reports that he has been increasingly depressed secondary to losses of his mother and within the last several months. He has been experiencing low mood, rumination, loneliness and tearfulness. He notes that he has limited supports in the community. He endorses intermittent suicidal ideation ongoing, although he denies any urge to hurt himself on the inpatient unit. He has been on Celexa and Xanax in the past but is agreeable to continuing the Cymbalta that was started by Dr. Gonzalez, and he does note a history of some chronic back pain for which an SNRI might be a helpful adjuvant agent. Denies side effects from medications. No other physical complaints besides the back pain. Review of Systems Except as stated in HPI: all other systems reviewed are Neg Mental Status Examination Appearance: Appropriate Consciousness: Alert Orientation: x4 Motor Activity: Other (no motor abnormalities noted. No signs of withdrawal noted.) Speech: Unremarkable Language: Adequate Fund of Knowledge: Adequate Attention and Concentration: Adequate Memory: Unremarkable Mood: Sad Affect: Sad Thought Process & Associations: Intact, Logical, Goal directed, Linear Thought Content: Appropriate Hallucination Type: None Delusion Type: None Suicidal Ideation: Yes (intermittent) Suicidal Plan: No Suicidal Intention: No (no urge to hurt himself on the inpatient unit) Homicidal Ideation: No Homicidal Plan: No Homicidal Intention: No Insight: Fair Judgment: Impulsive Results Labs Item Value Date Time White Blood Count 8.4 TH/MM3 08/28/17 1050 Hemoglobin 15.2 GM/DL 08/28/17 1050 Platelet Count 331 TH/MM3 08/28/17 1050 Sodium Level 137 MEQ/L 08/29/17 0828 Potassium Level 4.1 MEQ/L 08/29/17 0828 Chloride Level 100 MEQ/L 08/29/17 0828 Carbon Dioxide Level 28.7 MEQ/L 08/29/17 0828 Blood Urea Nitrogen 16 MG/DL 08/29/17 0828 Creatinine 0.97 MG/DL 08/29/17 0828 Estimat Glomerular Filtration Rate 83 ML/MIN L 08/29/17 0828 Hemoglobin A1c 5.3 % 08/29/17 0828 Aspartate Amino Transf (AST/SGOT) 26 U/L 08/28/17 1050 Alanine Aminotransferase (ALT/SGPT) 54 U/L 08/28/17 1050 Alkaline Phosphatase 72 U/L 08/28/17 1050 Vitamin B12 Level 462 PG/ML 08/29/17 0828 25-Hydroxy Vitamin D Total 5.7 ng/ML L 08/29/17 0828 Thyroid Stimulating Hormone 3rd Gen 2.260 uIU/ML 08/28/17 1050 Ethyl Alcohol Level 137 MG/DL H 08/28/17 1050 Labs reviewed. Low vitamin D level noted. Vitals/IOs Vital Signs Date Time Temp Pulse Resp B/P (MAP) Pulse Ox O2 Delivery O2 Flow Rate FiO2 08/31/17 06:18 98.2 84 20 150/91 (110) 98 08/28/17 18:15 Room Air Assessment & Plan Problem List: (1) Major depressive disorder, recurrent severe without psychotic features ICD Codes: F33.2 - Major depressive disorder, recurrent severe without psychotic features (2) Alcohol use ICD Codes: Z78.9 - Other specified health status Assessment & Plan Continue Cymbalta as ordered with plans to titrate to effect. We might also consider consolidating the Cymbalta to once daily dosing. Vitamin D supplement. Continue CIWA scale for the management of any withdrawal. I encouraged participation in groups and unit activities, especially because the patient cites isolation and loneliness as factors in his depression. Continue to monitor on the inpatient unit. Continue other medications and care as ordered. Justification for Cont. Inpt. Monitoring for impairment in safety. Risk for decompensation in less restrictive environment. Discharge Planning Pending psychiatric stabilization. Case discussed with counselor. Request HC Surrog/Guard Advoc?: No Theron Kimble MD Aug 31, 2017 10:31
[2017-08-31] MEDS ORDERED: ERGOCALCIFEROL (VIT D2) 50,000 UNIT CAP PO SCH (14:00)
[2017-08-31 17:04] VITALS: BP 149/73; PULSE 84; RESP 18; TEMP 98.2; O2SAT 97
[2017-08-31] MEDS: ZOLPIDEM TARTRATE 5 MG TAB PO SCH (20:45)
[2017-09-01 05:39] VITALS: BP 135/80; PULSE 80; RESP 16; TEMP 98; O2SAT 16
[2017-09-01] MEDS: DULoxetine HCl DR 20 MG CAP PO SCH (08:47)
[2017-09-01] MEDS: LORazepam 1 MG TAB PO PRN (10:39)
--- NOTE | 2017-09-01 12:15 | HHI.PYPN ---
Subjective Chief Complaint: Depression, SI Remarks Patient seen and examined with nurse and nurse practitioner. Chart reviewed. Case discussed with nursing staff. Case discussed in treatment team. On my examination today, the patient reports ongoing low mood and intermittent suicidal ideation outside of the hospital. He denies any urge to hurt himself inside of the hospital. He complains of poor sleep and requests titration of his Ambien. We discussed other approaches to manage poor sleep including addition of a sedating antidepressant such as Remeron or a sedating antipsychotic such as Seroquel. After discussion of the risks and benefits of the various strategies, we settle on titration of his Ambien. He denies side effects from current medications. No physical complaints. Review of Systems Except as stated in HPI: all other systems reviewed are Neg Mental Status Examination Appearance: Appropriate Consciousness: Alert Orientation: x4 Motor Activity: Other (no abnormal motor movements noted. No withdrawal signs noted.) Speech: Unremarkable Language: Adequate Fund of Knowledge: Adequate Attention and Concentration: Adequate Memory: Unremarkable Mood: Sad Affect: Appropriate Thought Process & Associations: Intact, Logical, Goal directed, Linear Thought Content: Appropriate Hallucination Type: None Delusion Type: None Suicidal Ideation: Yes (ongoing intermittent, outside of hospital) Suicidal Plan: No Suicidal Intention: No (no urge to hurt himself on the inpatient unit) Homicidal Ideation: No Homicidal Plan: No Homicidal Intention: No Insight: Fair Judgment: Impulsive Results Labs Labs reviewed. No new labs. Vitals/IOs Vital Signs Date Time Temp Pulse Resp B/P (MAP) Pulse Ox O2 Delivery O2 Flow Rate FiO2 09/01/17 05:39 98.0 80 16 135/80 (98) -1-6- In error. Actually 98% RA. 08/28/17 18:15 Room Air Intake and Output 09/01/17 09/01/17 09/02/17 08:00 16:00 00:00 Intake Total 240 ml Balance 240 ml Assessment & Plan Problem List: (1) Major depressive disorder, recurrent severe without psychotic features ICD Codes: F33.2 - Major depressive disorder, recurrent severe without psychotic features (2) Alcohol use ICD Codes: Z78.9 - Other specified health status Assessment & Plan Titrate Cymbalta to 60 mg daily to target low mood. No signs of withdrawal and CIWA scores have been minimal; discontinue CIWA and monitor. Titrate Ambien to 10 mg at bedtime. Replace Ativan for anxiety with Atarax. R/B/A for all meds changes discussed with patient. Continue to monitor on the inpatient unit. Continue other medications and care as ordered. Justification for Cont. Inpt. Med changes. Monitoring for impairment in safety, none noted. Discharge Planning Pending psychiatric stabilization. Possible discharge by the end of the week. Request HC Surrog/Guard Advoc?: No Theron Kimble MD Sep 01, 2017 12:15
[2017-09-01] MEDS ORDERED: DULoxetine HCl DR 20 MG CAP PO ONE (13:15)
[2017-09-01 18:47] VITALS: BP 148/85; PULSE 82; RESP 18; TEMP 98.3; O2SAT 98
[2017-09-01] MEDS: ZOLPIDEM TARTRATE 5 MG TAB PO SCH (21:00)
[2017-09-02 06:11] VITALS: BP 143/68; PULSE 70; RESP 18; TEMP 98; O2SAT 99
[2017-09-02] MEDS ORDERED: DULO20 PO (07:28)
[2017-09-02] MEDS ORDERED: DULoxetine HCl DR 20 MG CAP PO SCH (09:00)
[2017-09-02] MEDS: hydrOXYzine HCL 50 MG TAB PO PRN ×2 (10:54→20:48)
[2017-09-02] MEDS: ACETAMINOPHEN 325 MG TAB PO PRN (10:55)
--- NOTE | 2017-09-02 11:41 | HHI.PYPN ---
Subjective Chief Complaint: Depression, SI Remarks Patient seen and examined with nurse and nurse practitioner. Chart reviewed. Case discussed with nursing staff. No behavioral issues overnight. Case discussed with counselor who reports that [facility] will be around to see the patient later this week with probable discharge by Thursday. On my examination today, the patient reports that he slept better with titration of Ambien. He reports ongoing low mood and intermittent suicidal ideation. However, this report has a somewhat manipulative quality, and the patient is noted to be bargaining fairly openly for additional inpatient days noting that he would like to stay for perhaps "another 4-5 days." Denies any side effects from medications. No physical complaints. Review of Systems Except as stated in HPI: all other systems reviewed are Neg Mental Status Examination Appearance: Appropriate Consciousness: Alert Orientation: x4 Motor Activity: Other (no signs of withdrawal noted. No motoric abnormalities noted.) Speech: Unremarkable Language: Adequate Fund of Knowledge: Adequate Attention and Concentration: Adequate Memory: Unremarkable Mood: Other (reports mood remains depressed) Affect: Appropriate (full and reactive) Thought Process & Associations: Intact, Logical, Goal directed, Linear Thought Content: Appropriate Hallucination Type: None Delusion Type: None Suicidal Ideation: Yes (intermittent) Suicidal Plan: No Suicidal Intention: No (no urge to hurt himself on the inpatient psychiatric unit) Homicidal Ideation: No Homicidal Plan: No Homicidal Intention: No Insight: Fair Judgment: Adequate (fair) Results Labs Labs reviewed. No new labs. Vitals/IOs Vital Signs Date Time Temp Pulse Resp B/P (MAP) Pulse Ox O2 Delivery O2 Flow Rate FiO2 09/02/17 06:11 98.0 70 18 143/68 (93) 99 Assessment & Plan Problem List: (1) Major depressive disorder, recurrent severe without psychotic features ICD Codes: F33.2 - Major depressive disorder, recurrent severe without psychotic features (2) Alcohol use ICD Codes: Z78.9 - Other specified health status Assessment & Plan Continue Cymbalta as ordered, although we might consider further titration of this agent for mood if needed. Continue other psychotropics as ordered. Continue to monitor on the inpatient unit. Continue other medications and care as ordered. Justification for Cont. Inpt. Monitoring for impairment in safety, none noted. Risk for decompensation in less restrictive environment. Discharge Planning Anticipate discharge by the end of the week Request HC Surrog/Guard Advoc?: No Theron Kimble MD Sep 02, 2017 11:41
[2017-09-02] MEDS ORDERED: ERGOCALCIFEROL (VIT D2) 50,000 UNIT CAP PO SCH (15:00)
[2017-09-02 16:45] VITALS: BP 147/82; PULSE 65; RESP 18; TEMP 98.9; O2SAT 98
[2017-09-02] MEDS: ZOLPIDEM TARTRATE 5 MG TAB PO SCH (20:48)
[2017-09-03 06:02] VITALS: BP 114/66; PULSE 84; RESP 16; TEMP 81.1; O2SAT 95
[2017-09-03] MEDS: ACETAMINOPHEN 325 MG TAB PO PRN ×2 (06:29→16:02)
[2017-09-03] MEDS: hydrOXYzine HCL 50 MG TAB PO PRN ×2 (06:29→20:56)
--- NOTE | 2017-09-03 08:31 | HHI.PYPN ---
Subjective Chief Complaint: Depression, SI Remarks Patient seen and examined with nurse. Chart reviewed. Case discussed with nursing staff. No behavioral issues overnight. On my exam this morning, patient continues to complain of some low mood. He is to be evaluated by a insurance account representative from [facility] today, and I have discussed with him his readiness for a possible discharge to that facility tomorrow. In this setting he expresses ongoing low mood and intermittent suicidal ideation with possible plan to overdose, for example on Tylenol. He denies any urge to at this point. His remaining depressive symptoms are fairly vague. In context, this report seems manipulative with goal of prolonging his stay on the inpatient unit. No psychotic symptoms. Extensive discussion of safety planning, including presenting to the ED for urgent psych eval should he experience SI after discharge. No side effects from medications. No physical complaints besides some chronic blurry vision, notes that he usually wears eyeglasses for distance vision. Review of Systems Except as stated in HPI: all other systems reviewed are Neg Mental Status Examination Appearance: Appropriate Consciousness: Alert Orientation: x4 Motor Activity: Other (No motor abnormalities noted. No signs of withdrawal noted.) Speech: Unremarkable Language: Adequate Fund of Knowledge: Adequate Attention and Concentration: Adequate Memory: Unremarkable Mood: Other (reports mood remains somewhat depressed) Affect: Appropriate (again full and reactive, inconsistent with stated mood) Thought Process & Associations: Intact, Logical, Goal directed, Linear Thought Content: Appropriate Hallucination Type: None Delusion Type: None Suicidal Ideation: Yes (intermittent) Suicidal Plan: Yes (to OD on APAP) Suicidal Intention: No (No urge to hurt self on unit) Homicidal Ideation: No Homicidal Plan: No Homicidal Intention: No Insight: Fair Judgment: Adequate (fair) Results Labs Labs reviewed Vitals/IOs Vital Signs Date Time Temp Pulse Resp B/P (MAP) Pulse Ox O2 Delivery O2 Flow Rate FiO2 09/03/17 06:02 -8-1-.-1-In error. Actual temp 97.2F 84 16 114/66 (91) 95 Assessment & Plan Problem List: (1) Major depressive disorder, recurrent severe without psychotic features ICD Codes: F33.2 - Major depressive disorder, recurrent severe without psychotic features (2) Alcohol use ICD Codes: Z78.9 - Other specified health status Assessment & Plan Titrate Cymbalta to 90mg daily to target reported low mood. He does seem to have some dependent traits, and I wonder if this is mediating his apparent desire to remain in the structured environment of the inpatient unit. Continue to monitor on inpatient unit. Continue other meds and care as ordered. Justification for Cont. Inpt. Med change. Monitoring for impairment in safety. Discharge Planning Anticipate d/c Thursday to [facility]. Request HC Surrog/Guard Advoc?: No Theron Kimble MD Sep 03, 2017 08:31
[2017-09-03] MEDS: DULoxetine HCl DR 30 MG CAP PO SCH (09:39)
[2017-09-03 17:31] VITALS: BP 142/73; PULSE 73; RESP 16; TEMP 98.3; O2SAT 98
[2017-09-03] MEDS: ZOLPIDEM TARTRATE 5 MG TAB PO SCH (20:55)
[2017-09-04 06:14] VITALS: BP 128/76; PULSE 75; RESP 16; TEMP 98; O2SAT 99
[2017-09-04] MEDS: hydrOXYzine HCL 50 MG TAB PO PRN ×2 (06:55→16:19)
[2017-09-04] MEDS: ACETAMINOPHEN 325 MG TAB PO PRN ×2 (06:56→16:20)
[2017-09-04] MEDS: DULoxetine HCl DR 30 MG CAP PO SCH (09:22)
--- NOTE | 2017-09-04 12:21 | HHI.PYPN ---
Subjective Chief Complaint: Depression, SI Remarks Patient seen and examined with nurse. Chart reviewed. Case discussed with nursing staff. Case discussed in treatment team. On my examination today, patient reports that he feels "better than when I came in" with respect to mood and other psychiatric symptoms. However, he continues to insist that he is " not ready" to leave the unit. He seems quite intent on remaining on the inpatient unit, even though a bed at [facility] is available today. He cannot generate any treatment goal for remaining on the unit when asked. He insists that he will be ready to leave the hospital on Thursday. It is only after I explain that we must have a medical reason to retain the patient in the hospital that the patient says that he might kill himself if he were discharged before the weekend. In context this threat seems quite manipulative with goal of remaining on the inpatient unit. He denies any SI/HI presently. No side effects from medications. He does report some chronically blurry vision but denies eye pain, tearing or history of glaucoma. No other physical complaints. Review of Systems Except as stated in HPI: all other systems reviewed are Neg Mental Status Examination Appearance: Appropriate Consciousness: Alert Orientation: x4 Motor Activity: Other (no signs of withdrawal noted. No other motoric abnormalities noted.) Speech: Unremarkable Language: Adequate Fund of Knowledge: Adequate Attention and Concentration: Adequate Memory: Unremarkable Mood: Appropriate Affect: Appropriate (does not appear depressed) Thought Process & Associations: Intact, Logical, Goal directed, Linear Thought Content: Appropriate Hallucination Type: None Delusion Type: None Suicidal Ideation: Yes (if discharged today) Suicidal Plan: No (No specific plan verbalized) Suicidal Intention: No (Again no urge to hurt self on unit) Homicidal Ideation: No Homicidal Plan: No Homicidal Intention: No Insight: Fair Judgment: Adequate (fair) Results Labs Labs reviewed. Vitals/IOs Vital Signs Date Time Temp Pulse Resp B/P (MAP) Pulse Ox O2 Delivery O2 Flow Rate FiO2 09/04/17 06:14 98.0 75 16 128/76 (93) 99 Intake and Output 09/04/17 09/04/17 09/05/17 08:00 16:00 00:00 Intake Total 240 ml 240 ml Balance 240 ml 240 ml Assessment & Plan Problem List: (1) Adjustment disorder with depressed mood ICD Codes: F43.21 - Adjustment disorder with depressed mood (2) Malingering ICD Codes: Z76.5 - Malingerer [conscious simulation] (3) Alcohol use ICD Codes: Z78.9 - Other specified health status Assessment & Plan At this point, patient is felt to be malingering suicidal ideation to remain on the inpatient unit. His stated goal is to remain on the unit until Thursday, and he is able to say with certainty that this suicidal ideation will be resolved on Thursday. I will continue his Cymbalta as ordered and continue other medications and care as ordered. Justification for Cont. Inpt. Monitoring for impairment in safety, none noted. Discharge Planning Discharge Thursday. Request HC Surrog/Guard Advoc?: No Theron Kimble MD Sep 04, 2017 12:21
--- NOTE | 2017-09-04 16:05 | PD.TTN ---
Patient Problems 1. Discharge planning 2. Medication compliance 3. Knowledge deficit 4. Lack of coping skills Progress Toward Goals Provider Present: Dr. June Kimble Provider Input: 09/04/2017; per doctor patient will be assess over the weekend and discharged to [facility] on Thursday09/07/2017 Nurse(s) Present: RN Nurse(s) Input: 09/04/2017; patient is eating meals and taking his medication Psychiatric Counselors Present: HEATHER Pagan Psych Therapist Input: 09/04/2017; counselor will arrange transportation and discharge outpatient follow-up Group Spec/RT/OT/CORTES Present: SEBASTIAN Garzon Group Spec/RT/OT/CORTES Input: 09/04/2017; chris attends groups without participation Yanelis Reece MELI Sep 04, 2017 16:05
[2017-09-04 18:00] VITALS: BP 149/80; PULSE 72; RESP 16; TEMP 98.5; O2SAT 98
[2017-09-04] MEDS: ZOLPIDEM TARTRATE 5 MG TAB PO SCH (22:04)
[2017-09-05] MEDS: DULoxetine HCl DR 30 MG CAP PO SCH (08:18)
[2017-09-05] MEDS: ACETAMINOPHEN 325 MG TAB PO PRN ×2 (08:24→18:07)
--- NOTE | 2017-09-05 12:32 | HHI.PYPN ---
Subjective Chief Complaint: Depression, SI Remarks Patient was seen and case discussed with nursing. No review from yesterday where physician at concern for malingering. Today patient seems to have improved and denies suicidal or homicidal ideation intent or plan. He is feeling "better." Denies any nightmares or flashbacks or hypervigilance. Mental Status Examination Appearance: Appropriate Consciousness: Alert Orientation: x4 Motor Activity: Other (no signs of withdrawal noted. No other motoric abnormalities noted.) Speech: Unremarkable Language: Adequate Fund of Knowledge: Adequate Attention and Concentration: Adequate Memory: Unremarkable Mood: Appropriate Affect: Appropriate (does not appear depressed) Thought Process & Associations: Intact, Logical, Goal directed, Linear Thought Content: Appropriate Hallucination Type: None Delusion Type: None Suicidal Ideation: No (mood is still a little depressed) Suicidal Plan: No (No specific plan verbalized) Suicidal Intention: No (Again no urge to hurt self on unit) Homicidal Ideation: No Homicidal Plan: No Homicidal Intention: No Insight: Fair Judgment: Adequate (fair) Results Vitals/IOs Vital Signs Date Time Temp Pulse Resp B/P (MAP) Pulse Ox O2 Delivery O2 Flow Rate FiO2 09/04/17 18:00 98.5 72 16 149/80 (103) 98 Assessment & Plan Problem List: (1) Adjustment disorder with depressed mood ICD Codes: F43.21 - Adjustment disorder with depressed mood (2) Malingering ICD Codes: Z76.5 - Malingerer [conscious simulation] (3) Alcohol use ICD Codes: Z78.9 - Other specified health status Assessment & Plan Plan for discharge on Thursday Justification for Cont. Inpt. Patient would decompensate in a less restrictive setting Request HC Surrog/Guard Advoc?: No Brady Duran DO Sep 05, 2017 12:32
[2017-09-05 18:39] VITALS: BP 145/83; PULSE 76; RESP 17; TEMP 98.6; O2SAT 98
[2017-09-05] MEDS: ZOLPIDEM TARTRATE 5 MG TAB PO SCH (21:21)
[2017-09-06 05:44] VITALS: BP 133/64; PULSE 64; RESP 18; TEMP 98.7; O2SAT 100
[2017-09-06] MEDS: DULoxetine HCl DR 30 MG CAP PO SCH (09:10)
[2017-09-06] MEDS: IBUPROFEN 600 MG TAB PO SCH ×2 (14:45→21:15)
--- NOTE | 2017-09-06 15:07 | HHI.PYPN ---
Subjective Chief Complaint: Depression, SI Remarks Patient was seen and case discussed with nursing. Patient is pleasant and cooperative with exam. His insight continues to improve. He denies suicidal or homicidal ideation intent or plan. Describes his mood today is a 7 out of 10. He is eating and sleeping well. Affect remains anxious. Looking forward to discharge Mental Status Examination Appearance: Appropriate Consciousness: Alert Orientation: x4 Motor Activity: Other (no signs of withdrawal noted. No other motoric abnormalities noted.) Speech: Unremarkable Language: Adequate Fund of Knowledge: Adequate Attention and Concentration: Adequate Memory: Unremarkable Mood: Appropriate Affect: Anxious Thought Process & Associations: Intact, Logical, Goal directed, Linear Thought Content: Appropriate Hallucination Type: None Delusion Type: None Suicidal Ideation: No (mood is still a little depressed) Suicidal Plan: No (No specific plan verbalized) Suicidal Intention: No (Again no urge to hurt self on unit) Homicidal Ideation: No Homicidal Plan: No Homicidal Intention: No Insight: Fair Judgment: Adequate (fair) Results Vitals/IOs Vital Signs Date Time Temp Pulse Resp B/P (MAP) Pulse Ox O2 Delivery O2 Flow Rate FiO2 09/06/17 05:44 98.7 64 18 133/64 (87) 100 Intake and Output 09/06/17 09/06/17 09/07/17 08:00 16:00 00:00 Intake Total 720 ml Balance 720 ml Assessment & Plan Problem List: (1) Adjustment disorder with depressed mood ICD Codes: F43.21 - Adjustment disorder with depressed mood (2) Malingering ICD Codes: Z76.5 - Malingerer [conscious simulation] (3) Alcohol use ICD Codes: Z78.9 - Other specified health status Assessment & Plan Continue current treatment plan Justification for Cont. Inpt. Patient would decompensate in a less restrictive setting Request HC Surrog/Guard Advoc?: No Brady Duran DO Sep 06, 2017 15:07
[2017-09-06 18:57] VITALS: BP 166/86; PULSE 73; RESP 18; TEMP 98.3; O2SAT 100
[2017-09-06] MEDS: ZOLPIDEM TARTRATE 5 MG TAB PO SCH (21:15)
[2017-09-06] MEDS: hydrOXYzine HCL 50 MG TAB PO PRN (21:15)
[2017-09-07] MEDS: IBUPROFEN 600 MG TAB PO SCH ×2 (05:27→13:20)
[2017-09-07 05:49] VITALS: BP 142/81; PULSE 75; RESP 18; TEMP 98.1; O2SAT 97
[2017-09-07] MEDS ORDERED: VITA500012 PO (08:43)
[2017-09-07] MEDS ORDERED: AMBI5TAB PO (08:43)
[2017-09-07] MEDS ORDERED: DULO1CAP2 PO (08:43)
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
[2017-09-07] MEDS: DULoxetine HCl DR 30 MG CAP PO SCH (08:52)
[2017-09-07] MEDS: hydrOXYzine HCL 50 MG TAB PO PRN (11:18)
== END 2017-09-07 14:30 | disposition home or self-care (01) | DRG 885 ==
LOC: NEPD 09:52 → NEDA 19:11 → H260 20:07
PROVIDERS: ADMIT Psychiatry & Neurology Psychiatry; ATTEND Psychiatry & Neurology Psychiatry
DX: F33.2 Major depressive disorder, recurrent severe without psychotic features (principal); R45.851 Suicidal ideations; I10 Essential (primary) hypertension; F41.0 Panic disorder [episodic paroxysmal anxiety]; F43.10 Post-traumatic stress disorder, unspecified; R63.0 Anorexia; Y90.6 Blood alcohol level of 120-199 mg/100 ml; G47.00 Insomnia, unspecified; M54.9 Dorsalgia, unspecified; G89.29 Other chronic pain; H53.8 Other visual disturbances; F10.10 Alcohol abuse, uncomplicated; F43.21 Adjustment disorder with depressed mood; Z72.0 Tobacco use; Z76.5 Malingerer [conscious simulation]; Z91.5 Personal history of self-harm; Z98.1 Arthrodesis status
CPT/HCPCS: 80048; 80053; 80061; 80307; 82306; 82607; 83036; 84443; 85025; 93005; 99285